=== PATIENT | female | born 1980 | race Caucasian/White ===

== ENCOUNTER 2017-02-25 16:30 | Emergency (ER) | payer OTHER ==
[~2017-02-25 16:30] MED LIST: ACETAMINOPHEN PR; ALBUTEROL17 G1; BLOOD PRESSURE MED; CELEXA PO; CLEOCIN PO; DOLOBID500 MG PO; KEFLEX 500MG PO; LISINOPRIL PO; NAPROSYN PO; NO MEDICATIONS; PEN-VEE K PO; ROBITUSSIN DM118 ML PO; TAMIFLU75 M1; TOPROL XL PO
== END 2017-02-25 18:27 | disposition home or self-care (01) ==
LOC: SED 16:30
DX: T40.1X1A Poisoning by heroin, accidental (unintentional), initial encounter (principal); I10 Essential (primary) hypertension; F41.9 Anxiety disorder, unspecified; F32.9 Major depressive disorder, single episode, unspecified; Z88.2 Allergy status to sulfonamides; F17.210 Nicotine dependence, cigarettes, uncomplicated; Z98.890 Other specified postprocedural states
CPT/HCPCS: 99283